=== PATIENT | male | born 1960 | race Caucasian/White ===

== ENCOUNTER → 2016-09-14 | Outpatient (CLI) | payer OTHER ==
[~2016-09-14] MED LIST: CIPRO500 MG PO; FLOMAX0.4 MG PO; HYDROCODON-ACE1 EAC7 PO; PERCOCET 5/31 TABLET PO; ZOFRAN4 MG PO
== END | disposition home or self-care (01) ==
LOC: CDC 08:48
DX: R00.1 Bradycardia, unspecified (principal); G56.01 Carpal tunnel syndrome, right upper limb; M79.642 Pain in left hand
CPT/HCPCS: 93000